=== PATIENT | female | born 1965 | race Asian ===

== ENCOUNTER 2022-11-21 21:21 | Emergency (ER) | payer MEDICAID ==
[~2022-11-21] VITALS: Ht 170.2 cm; Wt 77.1 kg
[2022-11-22] MEDS ORDERED: MORPHINE SULFATE 4 MG/1 ML DISP.SYRIN IV ONE (01:15)
[2022-11-22 01:38] LABS: BILIRUBIN,DIRECT 0.1 mg/dL (0.0-0.2); BILIRUBIN,TOTAL 0.5 mg/dL (0.2-1.0); CREATININE 0.7 mg/dL (0.6-1.3); POTASSIUM 3.9 mmol/L (3.5-5.1); TOTAL PROTEIN, SERUM 7.5 g/dL (6.4-8.2)
[2022-11-22 01:45] LABS: HEMATOCRIT 40.5 % (31.2-41.9); MEAN CORPUSCULAR HEMOGLOBIN 29.7 uug (24.7-32.8); MEAN CORPUSCULAR VOLUME 88.1 fL (75.5-95.3); PLATELET COUNT (AUTO) 217 K/uL (179-408)
[2022-11-22] MEDS ORDERED: MORPHINE SULFATE 4 MG/1 ML DISP.SYRIN ONE (02:47)
[2022-11-22] MEDS ORDERED: HYDR-3980 PO (05:45)
--- NOTE | 2022-11-22 06:11 | NUR ---
Patient discharged to home in stable condition. Written and verbal after care instructions given. Instructed patient not to drive. Patient verbalizes understanding of instructions. Stressed follow up or return to ER for worsening s/s.
[2022-11-22 06:17] VITALS: BP 115/75
== END 2022-11-22 06:18 | disposition home or self-care (01) ==
LOC: ER 21:33
DX: K80.50 Calculus of bile duct without cholangitis or cholecystitis without obstruction (principal)
CPT/HCPCS: 99285; 96374; 76705; 80076; 80048; 83690; 85025; 36415; 93005; J2270; A4663